=== PATIENT | female | born 1975 | race Asian ===

== ENCOUNTER 2016-12-05 22:06 | Emergency (ER) | payer BC ==
[2016-12-05 22:43] LABS: BASOPHIL % 0.4 % (0-2); PLATELET COUNT 274 x10^3mcL (130-400); RED CELL DISTRIBUTION WIDTH 13.6 % (11.5-14.5)
[2016-12-05 22:49] LABS: CALCIUM 9.1 mg/dL (8.5-10.1); CARBON DIOXIDE 28.2 mmol/L (21-32); CHLORIDE SERUM 106 mmol/L (98-107); CREATININE SERUM 0.7 mg/dL (0.6-1.0); GFR1 > 60 mL/min; GLUCOSE SERUM 130 mg/dL (74-106); POTASSIUM SERUM 3.3 mmol/L (3.5-5.1); SODIUM SERUM 142 mmol/L (136-145)
[2016-12-05 22:54] LABS: ALBUMIN 3.6 g/dL (3.4-5.0); ALKALINE PHOSPHATASE 71 U/L (46-116); ALT/SGPT 19 U/L (14-59); AMYLASE 43 U/L (25-115); AST/SGOT 15 U/L (15-37); CHOLESTEROL 162 mg/dL (<200); HDL CHOLESTEROL 40 mg/dL (40-60); LIPASE 145 IU/L (73-393); TOTAL PROTEIN, SERUM 7.8 g/dL (6.4-8.2)
[2016-12-06 00:12] LABS: UA SPECIFIC GRAVITY 1.015 (1.005-1.035); microscopic required? YES; urine erythrocyte NEGATIVE (NEGATIVE)
[2016-12-06 01:12] VITALS: BP 120/83
== END 2016-12-06 01:12 | disposition home or self-care (01) ==
LOC: ED 22:06
PROVIDERS: Emergency Medicine
DX: R10.13 Epigastric pain (principal); E87.6 Hypokalemia
CPT/HCPCS: 83880; J0500; J1885; J7030; Q0092